=== PATIENT | male | born 1985 | race Two or more races ===

== ENCOUNTER 2020-01-31 16:03 | Emergency (ER) | payer SELFPAY ==
--- NOTE | 2020-01-31 16:38 | XR_ITS ---
EXAMINATION: XR FOOT, LEFT CLINICAL INFORMATION: Great toe pain. Question gout vs. fracture COMPARISON: None TECHNIQUE: AP, lateral, and oblique views of the left foot. FINDINGS: The lateral view is suboptimal, somewhat oblique. No fracture or dislocation seen. There is first metatarsophalangeal joint space narrowing and sclerosis with marginal osteophytosis. No specific findings to suggest gout. Small small plantar calcaneal osteophyte is present. There is mild dorsal spurring of the midfoot. There is an exostosis from the medial base of the first distal phalanx, 6 mm in length. IMPRESSION: Moderate degenerative arthrosis of the first tarsal metatarsal joint. The appearance suggests degenerative osteoarthritis with no specific findings to suggest this is due to gout. No fracture seen.
--- NOTE | 2020-01-31 16:39 | ED_ITS ---
HPI - Extremity Injury (Lower) General Chief Complaint: Extremity Problem Stated Complaint: TOE PAIN Time Seen by Provider: 01/31/20 16:27 Source: patient Mode of arrival: ambulatory History of Present Illness HPI Narrative: 35-year-old male with a past medical history of gout complaining of left great toe pain x2.5 weeks. Reports associated swelling and erythema. Admits symptoms similar to prior gout, however usually his gout over takes his entire foot. Denies known trauma / injury, numbness /tingling, weakness, fever MD complaint: foot injury Related Data Previous Rx's Medication Instructions Recorded ibuprofen 600 mg PO Q6H PRN 7 Days #20 tab 01/31/20 prednisone 10 mg PO DAILY #20 tab 01/31/20 Allergies Allergy/AdvReac Type Severity Reaction Status Date / Time Penicillins [PENICILLINS] Allergy Severe ANAPHYLAXIS Unverified 01/06/20 16:26 SEAFOOD Allergy Severe SWELLING Uncoded 01/06/20 16:26 Review of Systems Review of Systems: Constitutional: No Weight loss, No Fever Musculoskeletal: + joint pain, No Myalgias, + Joint Swelling Skin: No Skin Lesions, No rash Neuro: No Weakness, No Numbness, No Paresthesias Yes all other systems are reviewed and are negative PMFSH Past Medical History Attestation statement: The following information was validated with the patient. Medical History (Updated 01/31/20 @ 17:18 by ALVARO Cardenas) Gout No known health problems Social History Social History Smoking Status: Never smoker Use of substances other than those prescribed or required for medical reasons: No Advance Directives: No Advance Directives Information Provided: Yes Physical Exam Vital Signs: Vital Signs: Vital Signs Temp Pulse Resp BP Pulse Ox 01/31/20 16:46 98.6 F 77 18 137/62 96 Body Mass Index 44.3 Const: General: cooperative and healthy appearing Orientation/consciousness : patient oriented x3 Limitations: no limitations HENMT: Head: Yes normal to inspection Ears: hearing grossly normal bilaterally General nose exam: Normal external nose present Face and sinus: Yes normal facial exam Eyes: General: appearance normal, both eyes and all related structures EOM: EOMs intact bilaterally Neck: Neck: Yes normal visual inspection Resp: Effort & Inspection: normal respiratory effort Cardio: Rate: regular rate Peripheral pulses: Peripheral pulses 2+ through out Skin: Rashes: no rashes Wounds: no wounds Neuro: General: patient oriented x3 Gait exam (Neuro): Normal gait present Extrem: Other: left great toe swollen, erythematous, tender to palpation. No evidence of cellulitis / streaking. No fluctuance or induration Course Course Course Narrative: - x-ray showing moderate degenerative osteoarthrosis of the 1st tarsal metatarsal joint. Appearance suggestive degenerative osteoarthritis no specific findings to suggest gout. No fracture seen >> clinically will treat patient for gout MDM - Extremity Injury (Lower) MDM Narrative Medical decision making narrative: likely gout. Patient concern for possible fracture thus will obtain x-ray low concern for septic joint/arthritis Differential Diagnosis Differential diagnosis: Likely fracture of toe Discharge Plan Discharge Clinical Impression: Gout Qualifiers: Gout site: toe Gout etiology: unspecified cause Chronicity: acute Laterality: right Qualified Code(s): M10.9 - Gout, unspecified Osteoarthritis Qualifiers: Osteoarthritis location: foot Osteoarthritis type: unspecified Patient Disposition: Home, Self-Care Instructions: Osteoarthritis (ED), Gout (ED) Additional Instructions: your x-ray showed osteoarthritic changes of your 1st toe, however you likely have gout Take prednisone taper which will help with swelling /pain, in addition take Tylenol If area is worsening, redness spreads, swelling worsens, you develop fever or chills return to the ED You need to follow-up with your doctor Prescriptions: New prednisone 10 mg tablet 10 mg PO DAILY Qty: 20 RF: 0 ibuprofen 600 mg tablet 600 mg PO Q6H PRN (Reason: fever or pain) 7 Days Qty: 20 RF: 0 Referrals: Physician,None [Primary Care Provider] - 5 days
[2020-01-31 16:46] VITALS: BP 137/62; PULSE 77; RESP 18; TEMP 37; O2SAT 96; BMI 44.3
== END 2020-01-31 17:41 | disposition home or self-care (01) ==
PROVIDERS: Emergency Provider Internal Medicine
DX: M10.9 Gout, unspecified (principal); M19.071 Primary osteoarthritis, right ankle and foot
CPT/HCPCS: 73630; 99283

== ENCOUNTER 2020-02-14 13:32 | Outpatient (REF) | payer OTHER, SELFPAY | END 2020-02-14 13:33 | disposition home or self-care (01) | LOC: HO.LAB 13:32 | PROVIDERS: Visit Provider Internal Medicine | DX: Z20.828 Contact with and (suspected) exposure to other viral communicable diseases (principal) | CPT/HCPCS: 87635 ==

== ENCOUNTER 2020-03-02 11:33 | Outpatient (REF) | payer OTHER, SELFPAY | END 2020-03-02 11:34 | disposition home or self-care (01) | LOC: HO.LAB 11:33 | PROVIDERS: Visit Provider Internal Medicine | DX: Z20.828 Contact with and (suspected) exposure to other viral communicable diseases (principal) | CPT/HCPCS: C9803; U0003 ==

== ENCOUNTER 2020-03-13 11:37 | Emergency (ER) | payer OTHER, SELFPAY ==
--- NOTE | 2020-03-13 11:47 | XR_ITS ---
EXAMINATION: XR CHEST CLINICAL INFORMATION: Cough. COMPARISON: None TECHNIQUE: Frontal view of the chest was obtained. FINDINGS: No significant abnormality is noted involving the heart, lungs, mediastinum, bony thorax or soft tissues. XR/XR chest 1V IMPRESSION: Unremarkable chest examination.
[2020-03-13 12:02] VITALS: BP 118/66; PULSE 109; RESP 18; TEMP 39.4; O2SAT 93; BMI 44.3
[2020-03-13] MEDS: Acetaminophen 325 MG TABLET 975 MG PO (12:18)
[2020-03-13 13:20] VITALS: TEMP 38.9
[2020-03-13 13:49] VITALS: BP 130/57; PULSE 102; RESP 20; TEMP 38.4; O2SAT 95
[2020-03-13] MEDS: Ibuprofen 800 MG TABLET PO (13:49)
--- NOTE | 2020-03-13 14:04 | ED_ITS ---
HPI - URI/Sore Throat General Chief Complaint: Fever <Yg Gill NP - Last Filed: 03/13/20 14:26> Stated Complaint: fever,sob <Yg Gill NP - Last Filed: 03/13/20 14:26> Time Seen by Provider: 03/13/20 11:47 <Yg Gill NP - Last Filed: 03/13/20 14:26> Source: patient <Yg Gill NP - Last Filed: 03/13/20 14:26> Mode of arrival: ambulatory <Yg Gill NP - Last Filed: 03/13/20 14:26> Limitations: no limitations <Yg Gill NP - Last Filed: 03/13/20 14:26> History of Present Illness HPI Narrative: 35-year-old male who reports he has a history of asthma presenting today with complaint of rhinorrhea/congestion with some cough He was tested for COVID last week although he was negative his sister who also test the same time with similar symptoms tested positive. <Yg Gill NP - Last Filed: 03/13/20 14:26> MD elicited complaint: cough <Yg Gill NP - Last Filed: 03/13/20 14:26> Severity: moderate <Yg Gill NP - Last Filed: 03/13/20 14:26> Relieving factors: nothing <Yg Gill NP - Last Filed: 03/13/20 14:26> Associated symptoms: cough <Yg Gill NP - Last Filed: 03/13/20 14:26> Treatments prior to arrival: none <Yg Gill NP - Last Filed: 03/13/20 14:26> Related Data Home Medications: Previous Rx's Medication Instructions Recorded ibuprofen 600 mg PO Q6H PRN 7 Days #20 tab 01/31/20 prednisone 10 mg PO DAILY #20 tab 01/31/20 albuterol sulfate 2 puff INHALATION Q4-6H PRN #18 g 03/13/20 azithromycin [Zithromax Z-Saúl] 250 mg PO DAILY 5 Days #6 tab 03/13/20 prednisone 60 mg PO DAILY 5 Days #15 tab 03/13/20 <Yg Gill NP - Last Filed: 03/13/20 14:26> Allergies/Adverse Reactions: Allergies Allergy/AdvReac Type Severity Reaction Status Date / Time Penicillins [PENICILLINS] Allergy Severe ANAPHYLAXIS Verified 03/13/20 12:02 SEAFOOD Allergy Severe SWELLING Uncoded 03/13/20 12:02 <Yg Gill NP - Last Filed: 03/13/20 14:26> Review of Systems Review of Systems: Constitutional: No Weight loss, No Fever, No Chills, No Night Sweats, No Fatigue, No Malaise ENT/Mouth: No Hearing loss, No Ear Pain, No Nasal Congestion, No Sinus Pain, No Hoarseness, No sore throat, No Rhinorrhea, No Swallowing Difficulty Eyes: No Eye Pain, No Swelling, No Redness, No Foreign Body, No Discharge, No Vision Changes Cardiovascular: No Chest Pain, No SOB, No Dyspnea on Exertion, No Orthopnea, No Edema, No Palpitations Respiratory: + Cough, No Sputum, No Wheezing, No Smoke Exposure, No Dyspnea Gastrointestinal: No Nausea, No Vomiting, No Diarrhea, No Constipation, No abdominal Pain, No Hematochezia, No Melena Genitourinary: no irregular bleeding, No Dysuria, No Urinary Frequency, No Hematuria, No Urinary Incontinence, No Urgency, No Flank Pain, No Urinary Flow Changes, No Hesitancy Musculoskeletal: No joint pain, No Myalgias, No Joint Swelling Skin: No Skin Lesions, No rash Neuro: No Weakness, No Numbness, No Paresthesias, No Loss of Consciousness, No Dizziness, No Headache Psych: No Anxiety/Panic, No Depression, No SI/HI/AH/VH, No Social Issues Heme/Lymph: No Bruising, No Bleeding,No Lymphadenopathy Endocrine: No Polyuria, No Polydipsia, No Temperature Intolerance <Yg Gill NP - Last Filed: 03/13/20 14:26> Yes all other systems are reviewed and are negative <Yg Gill NP - Last Filed: 03/13/20 14:26> [facility] Past Medical History Medical History: Medical History (Updated 03/13/20 @ 14:04 by Yg Gill NP) Asthma Gout No known health problems <Yg Gill NP - Last Filed: 03/13/20 14:26> Social History Social History: Social History Smoking Status: Never smoker Advance Directives: No Advance Directives Information Provided: No <Yg Gill NP - Last Filed: 03/13/20 14:26> Physical Exam Vital Signs: Vital Signs: Last Vital Signs Temp 101.1 F H 03/13/20 13:49 Pulse 102 H 03/13/20 13:49 Resp 03/13/20 13:49 BP 130/57 L 03/13/20 13:49 Pulse Ox 95 03/13/20 13:49 Body Mass Index 44.3 Reviewed <Yg Gill NP - Last Filed: 03/13/20 14:26> Vital Signs: Last Vital Signs Temp 101.1 F H 03/13/20 13:49 Pulse 102 H 03/13/20 13:49 Resp 03/13/20 13:49 BP 130/57 L 03/13/20 13:49 Pulse Ox 95 03/13/20 13:49 Body Mass Index 44.3 <Delfino Reyna MD - Last Filed: 03/13/20 15:25> Const: General: cooperative and healthy appearing; No acute distress or intoxicated appearing <Yg Gill NP - Last Filed: 03/13/20 14:26> Nutritional Appearance: average body habitus <Yg Gill NP - Last Filed: 03/13/20 14:26> Orientation/consciousness: patient oriented x3 <Ygkirsty Gill NP - Last Filed: 03/13/20 14:26> HENMT: Head: Yes normal to inspection <Ygkirsty Gill NP - Last Filed: 03/13/20 14:26> Ears: hearing grossly normal bilaterally <Ygkirsty Gill NP - Last Filed: 03/13/20 14:26> Eyes: General: appearance normal, both eyes and all related structures <Yg Gill NP - Last Filed: 03/13/20 14:26> Visual Gómez: normal visual gómez by confrontation <Yg Gill NP - Last Filed: 03/13/20 14:26> Neck: Neck: Yes normal visual inspection, No positive Brudzinski's sign, No positive Kernig's sign and No tender <Ygkirsty Gill NP - Last Filed: 03/13/20 14:26> Thyroid: Thyroid normal <[facility] MARSHA Gill - Last Filed: 03/13/20 14:26> Chest: Chest palpation & inspection: normal inspection of the chest <Ygkirsty Gill NP - Last Filed: 03/13/20 14:26> Resp: Effort & Inspection: normal respiratory effort <Ygkirsty Gill NP - Last Filed: 03/13/20 14:26> Cardio: Jugular venous distension: no JVD <[facility] MARSHA Gill - Last Filed: 03/13/20 14:26> GI: Inspection: Yes normal to inspection <[facility] MARSHA Gill - Last Filed: 03/13/20 14:26> Percussion: Yes normal to percussion <[facility] MARSHA Gill - Last Filed: 03/13/20 14:26> Auscultation: normal bowel sounds <Ygkirsty Gill NP - Last Filed: 03/13/20 14:26> : General: Yes no CVA tenderness <[facility] MARSHA Gill - Last Filed: 03/13/20 14:26> Back/Spine/Pelvis: Back: no CVA tenderness <Ygkirsty Gill NP - Last Filed: 03/13/20 14:26> Skin: General skin exam: no rashes or lesions noted <Ygkirsty Gill NP - Last Filed: 03/13/20 14:26> Neuro: General: patient oriented x3 <Yg Gill NP - Last Filed: 03/13/20 14:26> Extrem: General: Yes normal to inspection <Ygkirsty Gill NP - Last Filed: 03/13/20 14:26> Course Course Course Narrative: Chest x-ray negative. COVID PCR pending. Given prednisone, Z-Saúl and inhaler for home. He is hemodynamically stable. Pulse ox 100% on room air. Plans/findings/return follow-up instructions provided and agreeable. Stable for discharge. <Yg Gill NP - Last Filed: 03/13/20 14:26> I have reviewed the chart <Delfino Reyna MD - Last Filed: 03/13/20 15:25> Discharge Plan Discharge Clinical Impression: Upper respiratory infection <Yg Gill NP - Last Filed: 03/13/20 14:26> Patient Disposition: Home, Self-Care <Yg Gill NP - Last Filed: 03/13/20 14:26> Instructions: Asthma (ED), Upper Respiratory Infection (ED) <Yg Gill NP - Last Filed: 03/13/20 14:26> Additional Instructions: Self-isolation Social distancing Take medication prescribed Return if any concerns or worsening symptoms Otherwise will call you with her COVID results in the next 3-5 days Thank you <Yg Gill NP - Last Filed: 03/13/20 14:26> Prescriptions: New azithromycin [Zithromax Z-Saúl] 250 mg tablet 250 mg PO DAILY 5 Days Qty: 6 RF: 0 albuterol sulfate 90 mcg/actuation HFA aerosol inhaler 2 puff inhalation Q4-6H PRN (Reason: shortness of breath or wheezing) Qty: 18 RF: 0 prednisone 20 mg tablet 60 mg PO DAILY 5 Days Qty: 15 RF: 0 No Action prednisone 10 mg tablet 10 mg PO DAILY Qty: 20 RF: 0 ibuprofen 600 mg tablet 600 mg PO Q6H PRN (Reason: fever or pain) 7 Days Qty: 20 RF: 0 <Yg Gill NP - Last Filed: 03/13/20 14:26> Referrals: Physician,Unknown [Primary Care Provider] - 1 week (Primary care ) <Yg Gill NP - Last Filed: 03/13/20 14:26> Stand Alone Forms: Work/School Release <Yg Gill NP - Last Filed: 03/13/20 14:26> Interventions: ED Discharge Assessment Last Done: 03/13/20 14:24 <Yg Gill NP - Last Filed: 03/13/20 14:26> Discharge Date/Time: 03/13/20 14:25 <Yg Gill NP - Last Filed: 03/13/20 14:26>
== END 2020-03-13 14:25 | disposition home or self-care (01) ==
PROVIDERS: Nurse Practitioner Primary Care; Emergency Provider Emergency Medicine
DX: J06.9 Acute upper respiratory infection, unspecified (principal); R50.9 Fever, unspecified; Z20.828 Contact with and (suspected) exposure to other viral communicable diseases; Z79.899 Other long term (current) drug therapy
CPT/HCPCS: 71045; 99283; U0003

== ENCOUNTER 2020-03-17 13:37 | Emergency (ER) | payer OTHER, SELFPAY ==
--- NOTE | 2020-03-17 14:14 | ED.FEVER ---
HPI - Fever General Chief Complaint: General Medical Stated Complaint: fever Time Seen by Provider: 03/17/20 14:11 Source: patient Mode of arrival: ambulatory Limitations: no limitations History of Present Illness HPI Narrative: 35 y/o male presenting with continued COVID symptoms: dry cough, fevers, muscle aches, nausea and fatigue. His sister was recently diagnosed with COVID-19 and he had exposure to her. He was seen here on 03/13 and a COVID-PCR was sent (still pending), and CXR performed (negative). He was prescribed Z-saúl, prednisone, ibuprofen and PRN albuterol inhaler which he has been taking. He states the cough has been keeping him up at night and causing his chest to be sore to touch. He states fevers are as high as 103 but improve to 99 after tylenol. Admits to nausea but denies abd pain, diarrhea. Eating well and staying hydrated. Related Data Previous Rx's Medication Instructions Recorded ibuprofen 600 mg PO Q6H PRN 7 Days #20 tab 01/31/20 prednisone 10 mg PO DAILY #20 tab 01/31/20 albuterol sulfate 2 puff INHALATION Q4-6H PRN #18 g 03/13/20 azithromycin [Zithromax Z-Saúl] 250 mg PO DAILY 5 Days #6 tab 03/13/20 prednisone 60 mg PO DAILY 5 Days #15 tab 03/13/20 hydrocodone-homatropine 5 ml PO Q4-6H PRN #60 ml 03/17/20 Allergies Allergy/AdvReac Type Severity Reaction Status Date / Time Penicillins [PENICILLINS] Allergy Severe ANAPHYLAXIS Verified 03/13/20 12:02 SEAFOOD Allergy Severe SWELLING Uncoded 03/13/20 12:02 Review of Systems Review of Systems: Constitutional: + Fever, + Chills ENT/Mouth: No sore throat, + Rhinorrhea, No Swallowing Difficulty Eyes: No Eye Pain, No Swelling, No Redness Cardiovascular: + Chest Pain, + SOB, No Orthopnea, No Edema Respiratory: + Cough, No Sputum, No Wheezing, + dyspnea Gastrointestinal: + Nausea, No Vomiting, No Diarrhea, No abdominal Pain Genitourinary: No Dysuria, No Urinary Frequency, No Hematuria Musculoskeletal: No joint pain, + Myalgias Skin: No Skin Lesions, No rash Neuro: + Generalized Weakness, No Numbness, No Dizziness, + Headache PMFSH Past Medical History Attestation statement: The following information was validated with the patient. Medical History Asthma Gout Social History Social History Alcohol intake: former Smoking Status: Never smoker Use of substances other than those prescribed or required for medical reasons: No Advance Directives: No Advance Directives Information Provided: No Physical Exam Vital Signs: Vital Signs: Last Vital Signs Temp 98.9 F 03/17/20 14:23 Pulse 81 03/17/20 14:23 Resp 18 03/17/20 14:23 BP 116/58 L 03/17/20 14:23 Pulse Ox 94 03/17/20 14:23 Body Mass Index 44.3 Appearance: Alert. Oriented X3. No acute distress. ENT: Pharynx normal. Neck: Normal inspection. Neck supple. CVS: Normal heart rate and rhythm. Pulses normal. Respiratory: No respiratory distress. Breath sounds normal. No wheezes Abdomen: Obese, Soft and nontender. +BS x4 Skin: Skin warm and dry. Normal skin color. Normal skin turgor. No rashes. Extremities: No lower extremity edema. Neuro: Oriented X 3. Non-focal. Course Course Course Narrative: 35 y/o male presenting with continued COVID symptoms. He appears well, non-toxic. Vitals are normal. Breath sounds are clear. No need to repeat CXR given he just had one, no hypoxia, no abnormal breath sounds. Resp viral panel sent. Suspect COVID given his exposure. Reevaluation(s) Reevaluation #1: COVID positive. Patient counseled. Stable for discharge. Instructed to come to the ED if he develops difficulty breathing or shortness of breath. MDM - Fever Lab Data Labs: Lab Results 03/17/20 Range/Units 14:34 Coronavirus (PCR) POSITIVE A (Negative) Influenza Type A (PCR) NEGATIVE (Negative) Influenza Type B (PCR) NEGATIVE (Negative) RSV RNA Qual (PCR) NEGATIVE (Negative) Discharge Plan Discharge Clinical Impression: COVID-19 Patient Disposition: Home, Self-Care Instructions: COVID-19 (Coronavirus Disease 2019) (ED) Additional Instructions: You are COVID-19 positive. Your vital signs were normal today. Continue to take over the counter cold/flu medications for your symptoms. Take Tylenol and/or Motrin as needed for fevers and muscle aches. Rest and stay hydrated. Quarantine at home and do not go out in public for at least 10 days. Use the albuterol inhaler as needed for shortness of breath or wheezing. If you develop difficulty breathing come back to the ER for further evaluation. Prescriptions: New hydrocodone-homatropine 5-1.5 mg/5 mL syrup 5 ml PO Q4-6H PRN (Reason: cough) Qty: 60 RF: 0 No Action azithromycin [Zithromax Z-Saúl] 250 mg tablet 250 mg PO DAILY 5 Days Qty: 6 RF: 0 albuterol sulfate 90 mcg/actuation HFA aerosol inhaler 2 puff inhalation Q4-6H PRN (Reason: shortness of breath or wheezing) Qty: 18 RF: 0 prednisone 20 mg tablet 60 mg PO DAILY 5 Days Qty: 15 RF: 0 prednisone 10 mg tablet 10 mg PO DAILY Qty: 20 RF: 0 ibuprofen 600 mg tablet 600 mg PO Q6H PRN (Reason: fever or pain) 7 Days Qty: 20 RF: 0
[2020-03-17 14:23] VITALS: BP 116/58; PULSE 81; RESP 18; TEMP 37.2; O2SAT 94; BMI 44.3
--- NOTE | 2020-03-17 14:34 | PC.NURSE ---
covid swab performed
[2020-03-17 15:28] LABS: Influenza A PCR NEGATIVE (Negative); Influenza B PCR NEGATIVE (Negative); Resp Syncy Virus RNA Qual PCR NEGATIVE (Negative)
[2020-03-17 15:31] LABS: SARS COV2 PCR INHOUSE POSITIVE (Negative)
== END 2020-03-17 16:11 | disposition home or self-care (01) ==
PROVIDERS: Physician Assistant; Emergency Provider Emergency Medicine Emergency Medical Services
DX: U07.1 COVID-19 (principal); R50.9 Fever, unspecified; M79.10 Myalgia, unspecified site; Z79.899 Other long term (current) drug therapy
CPT/HCPCS: 0241U; 99283

== ENCOUNTER 2021-04-08 17:31 | Emergency (ER) | payer OTHER, SELFPAY ==
--- NOTE | ~2021-04-08 | XR_ITS ---
EXAMINATION: X-RAY LEFT KNEE X-RAY RIGHT KNEE CLINICAL INFORMATION: Difficulty ambulating COMPARISON: None TECHNIQUE: Left knee 2 views. Right knee 2 views. FINDINGS: Left knee: Normal alignment. Joint spaces are maintained. No visible acute fracture or dislocation. Moderate to large joint effusion. Right knee: Normal alignment. Joint spaces are maintained. No visible acute fracture or dislocation. Moderate to large joint effusion. XR/XR knee RT 2V IMPRESSION: Left knee: No acute osseous abnormality seen. Moderate to large joint effusion. Right knee: No acute osseous abnormality seen. Moderate to large knee joint effusion.
--- NOTE | ~2021-04-08 | XR_ITS ---
EXAMINATION: X-RAY LEFT KNEE X-RAY RIGHT KNEE CLINICAL INFORMATION: Difficulty ambulating COMPARISON: None TECHNIQUE: Left knee 2 views. Right knee 2 views. FINDINGS: Left knee: Normal alignment. Joint spaces are maintained. No visible acute fracture or dislocation. Moderate to large joint effusion. Right knee: Normal alignment. Joint spaces are maintained. No visible acute fracture or dislocation. Moderate to large joint effusion. XR/XR knee LT 2V IMPRESSION: Left knee: No acute osseous abnormality seen. Moderate to large joint effusion. Right knee: No acute osseous abnormality seen. Moderate to large knee joint effusion.
[2021-04-08 19:07] VITALS: BP 125/50; PULSE 120; RESP 18; TEMP 37.3; O2SAT 99
[2021-04-08 21:28] VITALS: BP 134/83; PULSE 119; RESP 20; TEMP 37.2; O2SAT 96; BMI 44.3
--- NOTE | 2021-04-08 23:20 | ED.EXTPRO ---
HPI - Extremity Problem General Chief complaint: Extremity Injury, Lower Stated complaint: Gout Time Seen by Provider: 04/08/21 23:20 Source: patient Mode of arrival: ambulatory Limitations: no limitations History of Present Illness HPI Narrative: Patient with history of gout not on any medications comes here for 1 week of pain in the left greater toe spreading to the ankle and knee, no history of trauma no fever or chills Related Data Previous Rx's Medication Instructions Recorded ibuprofen 600 mg tablet 600 mg PO Q6H PRN 7 Days #20 tab 01/31/20 prednisone 10 mg tablet 10 mg PO DAILY #20 tab 01/31/20 albuterol sulfate 90 mcg/actuation 2 puff INHALATION Q4-6H PRN #18 g 03/13/20 aerosol inhaler azithromycin 250 mg tablet 250 mg PO DAILY 5 Days #6 tab 03/13/20 (Zithromax Z-Saúl) prednisone 20 mg tablet 60 mg PO DAILY 5 Days #15 tab 03/13/20 hydrocodone-homatropine 5 mg-1.5 5 ml PO Q4-6H PRN #60 ml 03/17/20 mg/5 mL oral syrup allopurinol 100 mg tablet 100 mg PO DAILY #30 tab 04/09/21 colchicine 0.6 mg tablet 0.6 mg PO DAILY #30 tab 04/09/21 indomethacin 50 mg capsule 50 mg PO TID #60 cap 04/09/21 prednisone 20 mg tablet 40 mg PO DAILY #10 tab 04/09/21 Allergies Allergy/AdvReac Type Severity Reaction Status Date / Time Penicillins [PENICILLINS] Allergy Severe ANAPHYLAXIS Verified 03/13/20 12:02 SEAFOOD Allergy Severe SWELLING Uncoded 03/13/20 12:02 Review of Systems Review of Systems: Yes all other systems are reviewed and are negative [facility] Past Medical History Medical History Asthma Gout Social History Social History Alcohol intake: former Advance Directives: No Advance Directives Information Provided: No Physical Exam Vital Signs: Vital Signs: Last Vital Signs Temp 98.9 F 04/08/21 21:28 Pulse 119 H 04/08/21 21:28 Resp 20 04/08/21 21:28 BP 134/83 04/08/21 21:28 Pulse Ox 96 04/08/21 21:28 BMI result Body Mass Index 44.3 Appearance: Alert. Oriented X3. No acute distress. Neck: Normal inspection. Neck supple. CVS: Normal heart rate and rhythm. Pulses normal. Respiratory: No respiratory distress. Skin: Skin warm and dry. Normal skin color. Normal skin turgor. Extremities: Swollen left 1st MTP joint, swollen left ankle and left knee with effusion and tenderness Neuro: Oriented X 3. MDM - Extremity (Nontraumatic) MDM Narrative Medical decision making narrative: Patient with gouty arthritis with history of same with elevated uric acid in the past will treat patient with steroids and anti-inflammatory Toradol Patient feeling better now will discharge patient home on prednisone allopurinol colchicine Discharge Plan Discharge Clinical Impression: Gout Qualifiers: Gout site: foot Gout etiology: unspecified cause Chronicity: acute Laterality: left Qualified Code(s): M10.9 - Gout, unspecified Patient Disposition: Home, Self-Care Instructions: Low Purine Diet (ED), Gout (ED) Additional Instructions: Take medication as prescribed Rest to the left foot Follow-up with PCP if not better Prescriptions: New prednisone 20 mg tablet 40 mg PO DAILY Qty: 10 RF: 0 colchicine 0.6 mg tablet 0.6 mg PO DAILY Qty: 30 RF: 0 allopurinol 100 mg tablet 100 mg PO DAILY Qty: 30 RF: 3 indomethacin 50 mg capsule 50 mg PO TID Qty: 60 RF: 0 No Action azithromycin [Zithromax Z-Súal] 250 mg tablet 250 mg PO DAILY 5 Days Qty: 6 RF: 0 albuterol sulfate 90 mcg/actuation HFA aerosol inhaler 2 puff inhalation Q4-6H PRN (Reason: shortness of breath or wheezing) Qty: 18 RF: 0 prednisone 20 mg tablet 60 mg PO DAILY 5 Days Qty: 15 RF: 0 prednisone 10 mg tablet 10 mg PO DAILY Qty: 20 RF: 0 ibuprofen 600 mg tablet 600 mg PO Q6H PRN (Reason: fever or pain) 7 Days Qty: 20 RF: 0 hydrocodone-homatropine 5-1.5 mg/5 mL syrup 5 ml PO Q4-6H PRN (Reason: cough) Qty: 60 RF: 0 Stand Alone Forms: Work/School Release
[2021-04-08] MEDS: dexAMETHasone 2 MG TABLET 10 MG PO (23:53)
[2021-04-08] MEDS: Ketorolac Tromethamine 60 MG/2 ML VIAL IM (23:53)
== END 2021-04-09 01:10 | disposition home or self-care (01) ==
PROVIDERS: Emergency Provider Internal Medicine
DX: M10.9 Gout, unspecified (principal); M79.675 Pain in left toe(s); M25.462 Effusion, left knee; M25.472 Effusion, left ankle
CPT/HCPCS: 73560; 96372; 99284; J1885; J8540

== ENCOUNTER 2022-11-15 10:48 | Emergency (ER) | payer OTHER, SELFPAY ==
[2022-11-15 11:04] VITALS: BP 157/92; PULSE 72; RESP 18; TEMP 36.8; O2SAT 97; BMI 49.2
--- NOTE | 2022-11-15 11:04 | ED_ITS ---
HPI - General Adult General Chief complaint: General Medical Stated complaint: Insect Bite Swelling Joint Pain Time Seen by Provider: 11/15/22 11:10 Source: patient Mode of arrival: ambulatory Limitations: no limitations History of Present Illness HPI narrative: Patient is a 37 year old assigned male at with a history of asthma and gout presenting to the emergency department today with bilateral knee pain, ri ght elbow pain, and a spider bite to his right pinky. Patient states that 3 weeks ago he was bit by a spider on his right pinky and ever since, he has had this joint pain. Patient states that he dug out something black from his hand after the bite. Patient states that it was not a tick. Patient denies any dizziness, lightheadedness, abdominal pain, nausea, vomiting, fever, chills, blurry vision, double vision, loss of vision, chest pain, difficulty breathing, shortness of breath, back pain, night sweats, pain with urination, increased urinary frequency, increased urinary urgency, blood in his urine or stool, syncope or a near syncopal episode, recent trauma or falls, bowel incontinence, bladder incontinence, bowel retention, bladder retention, or any other complaints at this time. Onset (ago): week(s) (3) Severity: mild Severity scale (1-10): 3 Quality: aching Pain Consistency: constant Relieving factors: none Exacerbating factors: none Associated symptoms: denies other symptoms Treatments prior to arrival: none Related Data Previous Rx's Medication Instructions Recorded ibuprofen 600 mg tablet 600 mg PO Q6H PRN fever or pain 7 01/31/20 days #20 tabs prednisone 10 mg tablet 10 mg PO DAILY #20 tabs 01/31/20 albuterol sulfate 90 mcg/actuation 2 puff inhalation Q4-6H PRN 03/13/20 aerosol inhaler shortness of breath or wheezing #18 grams azithromycin 250 mg tablet 250 mg PO DAILY 5 days #6 tabs 03/13/20 (Zithromax Z-Saúl) prednisone 20 mg tablet 60 mg PO DAILY 5 days #15 tabs 03/13/20 hydrocodone-homatropine 5 mg-1.5 5 ml PO Q4-6H PRN cough #60 mL 03/17/20 mg/5 mL oral syrup allopurinol 100 mg tablet 100 mg PO DAILY #30 tabs 12/20/21 colchicine 0.6 mg tablet 0.6 mg PO DAILY #30 tabs 04/09/21 indomethacin 50 mg capsule 50 mg PO TID #60 caps 04/09/21 prednisone 20 mg tablet 40 mg PO DAILY #10 tabs 04/09/21 cane #1 ea 11/15/22 prednisone 20 mg tablet 20 mg PO DAILY 7 days #7 tabs 11/15/22 Allergies Allergy/AdvReac Type Severity Reaction Status Date / Time Penicillins [PENICILLINS] Allergy Severe ANAPHYLAXIS Verified 03/13/20 12:02 SEAFOOD Allergy Severe SWELLING Uncoded 03/13/20 12:02 Review of Systems Constitutional: Constitutional: Reports no additional constitutional complaints, Denies chills, Denies fever(s) and Denies night sweats Eyes: Eyes: Reports no additional eye complaints, Denies blurry vision, Denies change in vision, Denies diplopia, Denies eye discharge, Denies loss of vision and Denies eye pain ENT: Denies dizziness Cardiovascular: Cardiovascular: Reports no additional cardiovascular complaints, Denies chest pain, Denies lightheadedness, Denies Loss of C onsciousness and Denies dyspnea Respiratory: Respiratory: Reports no additional respiratory complaints and Denies dyspnea Gastrointestinal: Gastrointestinal: Reports no additional gastrointestinal complaints, Denies abdominal pain, Denies melena, Denies hematochezia, Denies change in bowel habits and Denies change in stool character Genitourinary: Genitourinary: Reports no additional male genitourinary complaints, Denies hematuria, Denies oliguria, Denies difficulty urinating, Denies dysuria, Denies urinary frequency, Denies urinary hesitancy, Denies urinary incontinence and Denies urinary urgency Musculoskeletal: Musculoskeletal: Reports no additional musculoskeletal complaints, Denies numbness and Denies tingling Comments: bilateral knee pain, right elbow pain Neurologic: Denies dizziness, Denies loss of vision, Denies numbness and Denies tingling Psychiatric: Psychiatric: Reports no additional psychiatric complaints Endocrine: Endocrine: Reports no additional endocrine complaints Hematologic/Lymphatic: Hematologic/Lymphatic: Reports no additional hematologic/lymphatic complaints Allergic/Immunologic: Allergic/Immunologic: Reports no additional allergic/immunologic complaints PMFSH Past Medical History Attestation statement: The following information was validated with the patient. Source: old records reviewed and nursing notes reviewed Medical History Asthma COVID-19 Gout Social History Social History Alcohol intake: former Advance Directives: No Advance Directives Information Provided: No Physical Exam ED Vital Signs: Vital Signs - 24 hr 11/15/22 11:04 Temperature 98.2 F Pulse Rate 72 Respiratory Rate 18 Blood Pressure 157/92 H Pulse Oximetry 97 Oxygen Delivery Method Room Air BMI result Body Mass Index 49.2 Const General: cooperative, no acute distress, alert and awake Nutritional Appearance: well nourished Orientation/consciousness: patient oriented x3 Limitations: no limitations HENMT Head: Yes normal to inspection and Yes atraumatic Ears: hearing grossly normal bilaterally and external ears normal General nose exam: Normal external nose present, no nasal discharge noted and no epistaxis Face and sinus: Yes normal facial exam, No abrasion and No laceration Mouth: Normal oral and palatal mucosa present, no drooling and no muffled voice Eyes General: appearance normal, both eyes and all related structures Periorbital: periorbital findings normal Eyelids: Yes eyelids normal Conjunctivae: conjunctivae normal Pupils: Equal, round and reactive pupils present EOM: EOMs intact bilaterally Neck Neck: Yes normal visual inspection, Yes full ROM and Yes no lymphadenopathy Chest Chest palpation & inspection: normal inspection of the chest Resp Effort & Inspection: normal respiratory effort and able to speak in complete sentences GI Inspection: Yes normal to inspection Neuro General: patient oriented x3 and moves all extremities Cranial nerves: Yes Equal, round and reactive pupils present Cognition (Neuro): normal cognition Motor exam (neuro): 5/5 motor strength present throughout Sensory Exam: Normal double simultaneous stimulation for sensation Coordination: [id number] test normal Extrem General: Yes normal to inspection, Yes full ROM and Yes capillary refill normal Psych Appearance: grossly normal Mental Status: mental status grossly normal Affect: normal affect Attitude: cooperative Thought process: Normal thought process present Thought content: Normal thought content present Insight: Good insight present (Psych) Course Course Course Narrative: This is a rapid medical exam: Additional HPI, ROS, PE not included below will be deferred to primary provider. Patient is a 37-year-old male with history of gout presenting to the emergency department with complaint of right elbow and bilateral knee pain and swelling after insect bite to right pinky 3 weeks ago. States he feels it was a spider bite, did not visualize a spider but reports that he cut the bubble open and scraped out two black dots. Since has had the joint pain. Denies fevers. Plan: tick panel Medical Decision Making Medical Decision Making MDM Narrative: Patient is a 37 year old assigned male at with a history of asthma and gout presenting to the emergency department today with right elbow pain and bilateral knee pain. Patient's physical exam was unremarkable. Patient's tick panel is processing. I explained my physical exam findings to the patient. I answered all questions asked by the patient. Patient is non-toxic and not complaining of any other viral symptoms. Despite the patient being adamant that it was not a tick he pulled from his right pinky, will test for Lyme disease. Will treat as an arthritic or gout flare and if Lyme comes back positive, will treat. Patient requested I prescribe a cane for his bilateral knee pain. I stressed the importance of the patient taking his medication as prescribed. I stressed the importance of the patient following up with his primary care provider. I stressed the importance of the patient returning to the emergency department immediately if his symptoms were to worsen or if he were to develop any dizziness, shortness of breath, difficulty breathing, chest pain, blurry vision, loss of vision, nausea, vomiting, abdominal pain, fever, chills, back pain, or any other complaints. Patient verbalized agreement and understanding with this treatment plan and discharge. Differential Diagnosis Differential Diagnoses: The differential diagnosis associated with the presentation includes Osteoarthritis Lyme disease Gout flare Prescription Management I considered prescription management with: Other (patient prescribed an oral steroid.) Discharge Plan Discharge Clinical Impression: Joint pain Patient Disposition: Home, Self-Care Instructions: Arthralgia (ED) Additional Instructions: Follow up with your primary care provider. Return to the emergency department immediately if your symptoms worsen or if you develop any dizziness, shortness of breath, difficulty breathing, chest pain, blurry vision, loss of vision, nausea, vomiting, abdominal pain, fever, chills, back pain, or any other complaints. Prescriptions: New prednisone 20 mg tablet 20 mg PO DAILY 7 Days Qty: 7 0RF (DME) cane Device See Rx Instructions .Route Qty: 1 0RF Rx Instructions: As directed No Action azithromycin [Zithromax Z-Saúl] 250 mg tablet 250 mg PO DAILY 5 Days Qty: 6 0RF albuterol sulfate 90 mcg/actuation HFA aerosol inhaler 2 puff inhalation Q4-6H PRN (Reason: shortness of breath or wheezing) Qty: 18 0RF prednisone 20 mg tablet 60 mg PO DAILY 5 Days Qty: 15 0RF prednisone 10 mg tablet 10 mg PO DAILY Qty: 20 0RF Taper: Prednisone 40 mg daily for 3 Days and 0 Hour 30 mg daily for 3 Days and 0 Hour 20 mg daily for 3 Days and 0 Hour 10 mg daily for 3 Days and 0 Hour Rx Instructions: prednisone 10 mg: take 4 tablets (40 mg) for 2 days; 3 tablets (30 mg) for 2 days; 2 (20mg) tablets for 2 days and then 1 (10mg) tablet for 2 days ibuprofen 600 mg tablet 600 mg PO Q6H PRN (Reason: fever or pain) 7 Days Qty: 20 0RF hydrocodone-homatropine 5-1.5 mg/5 mL syrup 5 ml PO Q4-6H PRN (Reason: cough) Qty: 60 0RF prednisone 20 mg tablet 40 mg PO DAILY Qty: 10 0RF colchicine 0.6 mg tablet 0.6 mg PO DAILY Qty: 30 0RF allopurinol 100 mg tablet 100 mg PO DAILY Qty: 30 3RF indomethacin 50 mg capsule 50 mg PO TID Qty: 60 0RF Rx Instructions: administer with food or milk Referrals: [facility] [Primary Care Provider] - Interventions: ED Discharge Assessment Last Done: 11/15/22 11:42 Discharge Date/Time: 11/15/22 11:42 Print Language: Macedonian
[2022-11-18 23:12] LABS: A. Phagocytphilium DNA,RT-PCR NOT DETECTED (NOT DETECTED); Babesia Microti DNA, RT-PCR NOT DETECTED (NOT DETECTED); Borrelia Miyamotoi,DNA RT-PCR NOT DETECTED (NOT DETECTED); E.Chaffeensis DNA RT-PCR NOT DETECTED (NOT DETECTED); Lyme(Borrelia ssp)DNA RT-PCR NOT DETECTED (NOT DETECTED)
== END 2022-11-15 11:42 | disposition home or self-care (01) ==
PROVIDERS: Registered Nurse Emergency; Emergency Provider Emergency Medicine Emergency Medical Services
DX: M25.562 Pain in left knee (principal); M25.561 Pain in right knee; Z79.899 Other long term (current) drug therapy
CPT/HCPCS: 36415; 87798; 87801; 99282; 99283

== ENCOUNTER 2024-07-22 20:54 | Emergency (ER) | payer MEDICAID, SELFPAY ==
[2024-07-22 21:02] VITALS: BP 143/85; PULSE 100; RESP 16; TEMP 36.6; O2SAT 96; BMI 51.2
[2024-07-22 21:15] LABS: MANUAL DIFF FLAG NO
[2024-07-22 21:16] LABS: Basophils Absolute Auto 0.1 X10*3/uL (0.0-0.2); Basophils Percent Auto 0.4 % (0-2); Eosinophils Absolute Auto 0.1 X10*3/uL (0.0-0.4); Eosinophils Percent Auto 0.6 % (0-4); Hematocrit 41.6 % (42.0-52.0); Hemoglobin 14.1 g/dl (14.0-18.0); Imm Gran Abs Auto 0.04 X10*3/uL (0.00-0.03); Imm Gran Pct Auto 0.3 % (0.0-0.4); Lymphocytes Absolute Auto 1.9 X10*3/uL (1.2-4.9); Lymphocytes Percent Auto 16.5 % (20-40); Mean Corpuscular HGB Conc 33.9 g/dl (31.0-36.0); Mean Corpuscular Hemoglobin 29.5 pg (27.0-33.0); Mean Platelet Volume 10.3 fL (9.4-12.4); Monocytes Absolute Auto 1.2 X10*3/uL (0.1-1.2); Monocytes Percent Auto 10.2 % (2-11); Neutrophils Absolute Auto 8.4 x10*3/uL (2.0-8.3); Platelet Count 281 X10*3/uL (160-400); Red Blood Count 4.78 X10*6/uL (4.60-5.80); Red Cell Distribution Width 13.1 % (11.0-16.0); White Blood Count 11.6 X10*3/uL (4.8-10.8)
[2024-07-22 21:29] LABS: Alanine Aminotransferase 32 U/L (0-40); Albumin Level 4.1 g/dL (3.5-5.0); Alkaline Phosphatase 68 U/L (39-117); Anion Gap 13 (12-20); Aspartate Amino Transferase 25 U/L (5-37); Bilirubin Total 0.4 mg/dL (0.0-1.0); Blood Urea Nitrogen 13 mg/dL (9-16); Calcium 9.7 mg/dL (8.4-10.2); Carbon Dioxide 29 mmol/L (22-29); Chloride 103 mmol/L (96-108); Creatinine Clr Calc Pharmacy 143.4; Estimated Glomerular Filt Rate > 60; Glucose Random 116 mg/dL (60-115); Potassium 3.9 mmol/L (3.3-5.1); Sodium 141 mmol/L (135-145); Uric Acid 4.2 mg/dL (3.4-7.0)
--- NOTE | 2024-07-22 22:59 | ED.LOWEXIN ---
HPI - Extremity Injury (Lower) General Chief Complaint: Extremity Injury, Lower Stated Complaint: left foot,right knee pain ? gout Time Seen by Provider: 07/22/24 22:47 Source: patient Mode of arrival: ambulatory Limitations: no limitations History of Present Illness ED Provider: Dr. Shanell Juárez HPI Narrative: Patient comes to emergency room complaining of a gout flare. Patient states that he has been diagnosed with gout flares in the past and it feels the same. Patient states that 3 days ago it started with his left ankle. Patient states that he was hoping it would go away. Patient states that he had been avoiding putting much weight on his left foot and has been walking with a cane over compensating with his right leg and now his right knee hurts. Patient denies any falls. Patient denies fever or chills. Related Data Previous Rx's ?Medication ?Instructions ?Recorded ibuprofen 600 mg tablet 600 mg PO Q6H PRN fever or pain 7 01/31/20 days #20 tabs prednisone 10 mg tablet 10 mg PO DAILY #20 tabs 01/31/20 albuterol sulfate 90 mcg/actuation 2 puff inhalation Q4-6H PRN 03/13/20 aerosol inhaler shortness of breath or wheezing #18 grams azithromycin 250 mg tablet 250 mg PO DAILY 5 days #6 tabs 03/13/20 (Zithromax Z-Saúl) prednisone 20 mg tablet 60 mg (3 x 20 mg) PO DAILY 5 days 03/13/20 #15 tabs hydrocodone-homatropine 5 mg-1.5 5 ml PO Q4-6H PRN cough #60 mL 03/17/20 mg/5 mL oral solution allopurinol 100 mg tablet 100 mg PO DAILY #30 tabs 04/09/21 colchicine 0.6 mg tablet 0.6 mg PO DAILY #30 tabs 04/09/21 indomethacin 50 mg capsule 50 mg PO TID #60 caps 04/09/21 prednisone 20 mg tablet 40 mg (2 x 20 mg) PO DAILY #10 tabs 04/09/21 cane #1 ea 11/15/22 prednisone 20 mg tablet 20 mg PO DAILY 7 days #7 tabs 11/15/22 colchicine 0.6 mg capsule 0.6 mg PO BID PRN pain #10 caps 07/22/24 prednisone 20 mg tablet 20 mg PO DAILY #4 tabs 07/22/24 Allergies Allergy/AdvReac Type Severity Reaction Status Date / Time Penicillins [PENICILLINS] Allergy Severe ANAPHYLAXIS Verified 07/22/24 21:04 SEAFOOD Allergy Severe SWELLING Uncoded 03/13/20 12:02 Review of Systems Review of Systems: Constitutional : No Weight loss, No Fever, No Chills, No Night Sweats, No Fatigue, No Malaise ENT/Mouth : No Hearing loss, No Ear Pain, No Nasal Congestion, No Sinus Pain, No Hoarseness, No sore throat, No Rhinorrhea, No Swallowing Difficulty Eyes: No Eye Pain, No Swelling, No Redness, No Foreign Body, No Discharge, No Vision Changes Cardiovascular : No Chest Pain, No SOB, No Dyspnea on Exertion, No Orthopnea, No Edema, No Palpitations Respiratory : No Cough, No Sputum, No Wheezing, No Smoke Exposure, No Dyspnea Gastrointestinal : No Nausea, No Vomiting, No Diarrhea, No Constipation, No abdominal Pain, No Hematochezia, No Melena Genitourinary : no irregular bleeding, No Dysuria, No Urinary Frequency, No Hematuria, No Urinary Incontinence, No Urgency, No Flank Pain, No Urinary Flow Changes, No Hesitancy Musculoskeletal : Complaining of left ankle and right knee pain and swelling, No Myalgias, No Joint Swelling Skin : No Skin Lesions, No rash Neuro : No Weakness, No Numbness, No Paresthesias, No Loss of Consciousness, No Dizziness, No Headache Psych : No Anxiety/Panic, No Depression, No SI/HI/AH/VH, No Social Issues, Heme/Lymph: No Bruising, No Bleeding,No Lymphadenopathy Endocrine : No Polyuria, No Polydipsia, No Temperature Intolerance [facility] Past Medical History Medical History COVID-19 Asthma Gout Social History Social History Alcohol intake: former Do you have a plan to hurt others: No Plan Physical Exam Vital Signs: Vital Signs: Last Vital Signs Temp 97.9 F 07/22/24 21:02 Pulse 100 07/22/24 21:02 Resp 16 07/22/24 21:02 BP 143/85 H 07/22/24 21:02 Pulse Ox 96 07/22/24 21:02 O2 Del Method Room Air 07/22/24 21:02 BMI result Body Mass Index 51.2 Const: Other: Appearance: Alert. Oriented X3. No acute distress. Eyes: Pupils equal, round and reactive to light. ENT: Pharynx normal. Neck: Normal inspection. Neck supple. No lymph nodes noted. No crepitus CVS: Normal heart rate and rhythm. Pulses normal. Normal S1 and S2 Respiratory: No respiratory distress. Breath sounds normal. No Wheezing. No rales Abdomen: Soft and nontender. No rigidity. No distention. Skin: Skin warm and dry. Normal skin color. Normal skin turgor. Extremities: left ankle slightly swollen, no pitting edema, no pain in the calf, no erythema, slightly warm but not obvious. On the right knee there is a small to moderate effusion. Not warm to touch, no significant pain to palpation. Neuro: Oriented X 3. No motor deficit. No sensory deficit. Moving all extremities. No slurred speech. CN 2 through 12 grossly intact Psych: calm, cooperative, normal affect Medical Decision Making Medical Decision Making [facility] Narrative: My interpretation of labs: Patient's white blood cell count 11.6 which is chronic for the patient, normal chemistry, normal LFTs I discussed the physical exam with the patient, patient likely has starting of gout on his left ankle . the pain is localized, DVT not suspected the pain on the right knee likely secondary to an effusion. Patient was given p.o. prednisone and colchicine patient instructed to have close follow-up with his primary care physician. Patient's is able to flex and extend the joints, including the affected joints. Septic joints are not suspected Differential Diagnosis Differential Diagnoses: The differential diagnosis associated with the presentation includes ( as above) Lab Data [facility] Lab Attestation statement: I reviewed the patient's lab results. 07/22/24 21:10 07/22/24 21:10 Labs: Lab Results 07/22/24 Range/Units 21:10 WBC 11.6 H (4.8-10.8) X10*3/uL RBC 4.78 (4.60-5.80) X10*6/uL Hgb 14.1 (14.0-18.0) g/dl Hct 41.6 L (42.0-52.0) % MCV 87.0 (80.0-98.0) fL MCH 29.5 (27.0-33.0) pg MCHC 33.9 (31.0-36.0) g/dl RDW 13.1 (11.0-16.0) % Plt Count 281 (160-400) X10*3/uL MPV 10.3 (9.4-12.4) fL Immature Gran % (Auto) 0.3 (0.0-0.4) % Neut % (Auto) 72.0 (45-73) % Lymph % (Auto) 16.5 L (20-40) % [place] % (Auto) 10.2 (2-11) % Eos % (Auto) 0.6 (0-4) % Baso % (Auto) 0.4 (0-2) % Lymph # (Auto) 1.9 (1.2-4.9) X10*3/uL [place] # (Auto) 1.2 (0.1-1.2) X10*3/uL Eos # (Auto) 0.1 (0.0-0.4) X10*3/uL Baso # (Auto) 0.1 (0.0-0.2) X10*3/uL Abs Immat Gran (auto) 0.04 H (0.00-0.03) X10*3/uL Absolute Neuts (auto) 8.4 H (2.0-8.3) x10*3/uL Absolute Nucleated RBC 0.000 (0.0-0.012) X10*3/uL Nucleated RBC % (auto) 0.0 (0.0-0.2) /100WBC Sodium 141 (135-145) mmol/L Potassium 3.9 (3.3-5.1) mmol/L Chloride 103 (96-108) mmol/L Carbon Dioxide 29 (22-29) mmol/L Anion Gap 13 (12-20) BUN 13 (9-16) mg/dL Creatinine 1.01 (0.5-1.4) mg/dL Estim Creat Clear Calc 143.4 Estimated GFR > 60 Random Glucose 116 H (60-115) mg/dL Uric Acid 4.2 (3.4-7.0) mg/dL Calcium 9.7 (8.4-10.2) mg/dL Total Bilirubin 0.4 (0.0-1.0) mg/dL AST 25 (5-37) U/L ALT 32 (0-40) U/L Alkaline Phosphatase 68 (39-117) U/L Total Protein 8.0 (6.5-8.0) g/dL Albumin 4.1 (3.5-5.0) g/dL Independent Interpretation I performed an independent interpretation of an: Plain X-Ray Radiology Impression Discussion of test interpretation with radiology: I have reviewed the radiologist's reading. Discharge Plan Discharge Clinical Impression: Gout, Effusion of knee joint Patient Disposition: Home, Self-Care Instructions: Low Purine Diet (ED), Gout (ED), Swollen Joint (ED) Additional Instructions: Please follow-up with your primary care physician tomorrow. If you have any worsening or new symptoms, please return to the emergency room or call 911 Prescriptions: New colchicine 0.6 mg capsule 0.6 mg PO BID PRN (Reason: pain) Qty: 10 0RF prednisone 20 mg tablet 20 mg PO DAILY Qty: 4 0RF No Action azithromycin [Zithromax Z-Saúl] 250 mg tablet 250 mg PO DAILY 5 Days Qty: 6 0RF albuterol sulfate 90 mcg/actuation HFA aerosol inhaler 2 puff inhalation Q4-6H PRN (Reason: shortness of breath or wheezing) Qty: 18 0RF prednisone 20 mg tablet 60 mg PO DAILY 5 Days Qty: 15 0RF prednisone 10 mg tablet 10 mg PO DAILY Qty: 20 0RF Taper: Prednisone 40 mg daily for 3 Days and 0 Hour 30 mg daily for 3 Days and 0 Hour 20 mg daily for 3 Days and 0 Hour 10 mg daily for 3 Days and 0 Hour Rx Instructions: prednisone 10 mg: take 4 tablets (40 mg) for 2 days; 3 tablets (30 mg) for 2 days; 2 (20mg) tablets for 2 days and then 1 (10mg) tablet for 2 days ibuprofen 600 mg tablet 600 mg PO Q6H PRN (Reason: fever or pain) 7 Days Qty: 20 0RF hydrocodone-homatropine 5-1.5 mg/5 mL syrup 5 ml PO Q4-6H PRN (Reason: cough) Qty: 60 0RF prednisone 20 mg tablet 40 mg PO DAILY Qty: 10 0RF colchicine 0.6 mg tablet 0.6 mg PO DAILY Qty: 30 0RF allopurinol 100 mg tablet 100 mg PO DAILY Qty: 30 3RF indomethacin 50 mg capsule 50 mg PO TID Qty: 60 0RF Rx Instructions: administer with food or milk prednisone 20 mg tablet 20 mg PO DAILY 7 Days Qty: 7 0RF (DME) cane Device See Rx Instructions .Route Qty: 1 0RF Rx Instructions: As directed Stand Alone Forms: Work/School Release Print Language: Telugu
--- OUTSIDE RECORDS SUMMARY | 2024-07-22 23:16 | XMS_ITS | Encounter Summary ---
Author Organization [employer] Address [address] [place] [address] Care Team Providers Care Film Cutter Name Role Phone Unavailable Primary Care Provider Unavailabl e Encounter Details Date Type Department Care Team (Late st Contact Info) Description 07/22/2024 Orders Only GENERIC EXTERNAL DATA DEPARTMENT Provider, Generic External Data Social History Tobacco Use Types Packs/Day Years Used Date Smoking Tobacco: Never Assessed Sex and Gender Information Value Date Recorded Sex Assigned at Male 02/18/2022 10:17 AM EDT Legal Sex Male 10:17 AM EDT Gender Identity Choose not to disclose 10:17 AM EDT Sexual Orientation Choose not to disclose 2021 10:17 AM EDT documented as of this encounter Plan of Treatment Not on file documented as of this encounter Procedures Procedure Name Priority Date/Time Associated Diagnosis Comments CBC WITH AUTO DIFFERENTIAL Routine 07/22/2024 9:10 PM EDT URIC ACID Routine 07/22/2024 9:10 PM EDT COMPREHENSIVE METABOLIC PANEL Routine 07/22/2024 9:10 PM EDT documented in this encounter Results * Uric acid (07/22/2024 9:10 PM EDT) Uric Acid 4.2 3.4 - 7.0 mg/dL [facility] 07/22/2024 9:10 PM EDT 07/22/2024 9:13 PM EDT us Generic External Data Provider LAB BLOOD ORDERAB LES Final Result [facility] [address] [place] [phone] * (ABNORMAL) Comprehensive Metabolic Panel (07/22/2024 9:10 PM EDT) Sodium 141 135 - 145 mmol/L [facility] Potassium 3.9 3.3 - 5.1 mmol/L [facility] Chloride 103 96 - 108 mmol/L [facility] Carbon Dioxide 29 22 - 29 mmol/L [facility] Anion Gap 13 12 - 20 [facility] Urea Nitrogen (BUN) 13 9 - 16 mg/dL [facility] Creatinine, Serum 1.01 0.5 - 1.4 mg/dL [facility] Creatinine Clr Calc Pharmacy 143.4 [facility] Comment:eGFR (calculated fro m the MDRD study equation) and eCrCl(calculated from the Cockcroft-Gault equation) are based ondifferent parameters and may not yield comparable results.If eCrCl result is absurd, please check patient'sheight/weight. Estimated Glomerular Filt Rate >60 [facility] Comment:Chronic Kidney Disea se: Estimated GFR < 60 mL/min/1.87a7Pdbrht Kidney Disease: Estimated GFR < 15 mL/min/1.73m2 Glucose 116(H) 60 - 115 mg/dL [facility] Calcium 9.7 8.4 - 10.2 mg/dL [facility] Bilirubin, Total 0.4 0.0 - 1.0 mg/dL [facility] Aspartate Amino Transferase 25 5 - 37 U/L [facility] Alanine Aminotransferase 32 0 - 40 U/L [facility] Total Protein 8.0 6.5 - 8.0 g/dL [facility] Albumin Level 4.1 3.5 - 5.0 g/dL [facility] Alkaline Phosphatase 68 39 - 117 U/L [facility] 07/22/2024 9:10 PM EDT 07/22/2024 9:13 PM EDT us Generic External Data Provider LAB BLOOD ORDERAB LES Final Result [facility] [address] [place] [phone] * (ABNORMAL) CBC auto differential (07/22/2024 9:10 PM EDT) White Blood Count 11.6(H) 4.8 - 10.8 X10*3/uL [facility] Red Blood Count 4.78 4.60 - 5.80 X10*6/uL [facility] Hemoglobin 14.1 14.0 - 18.0 g/dl [facility] Hematocrit 41.6(L) 42.0 - 52.0 % [facility] Mean Corpuscular Volume 87.0 80.0 - 98.0 fL [facility] Mean Corpuscular Hemoglobin 29.5 27.0 - 33.0 pg [facility] Mean Corpuscular HGB Conc 33.9 31.0 - 36.0 g/dl [facility] Red Cell Distribution Width 13.1 11.0 - 16.0 % [facility] Platelet Count 281 160 - 400 X10*3/uL [facility] Mean Platelet Volume 10.3 9.4 - 12.4 fL [facility] Neutrophils Percent Auto 72.0 45 - 73 % [facility] Imm Gran Pct Auto 0.3 0.0 - 0.4 % [facility] Lymphocytes Percent Auto 16.5(L) 20 - 40 % [facility] Monocytes Percent Auto 10.2 2 - 11 % [facility] Eosinophils Percent Auto 0.6 0 - 4 % [facility] Basophils Percent Auto 0.4 0 - 2 % [facility] NRBC Pct Auto 0.0 0.0 - 0.2 /100WBC [facility] Neutrophils Absolute Auto 8.4(H) 2.0 - 8.3 x10*3/uL [facility] Imm Gran Abs Auto 0.04(H) 0.00 - 0.03 X10*3/uL [facility] Lymphocytes Absolute Auto 1.9 1.2 - 4.9 X10*3/uL [facility] Monocytes Absolute Auto 1.2 0.1 - 1.2 X10*3/uL [facility] Eosinophils Absolute Auto 0.1 0.0 - 0.4 X10*3/uL [facility] Basophils Absolute Auto 0.1 0.0 - 0.2 X10*3/uL [facility] NRBC Abs Auto 0.000 0.0 - 0.012 X10*3/uL [facility] 07/22/2024 9:10 PM EDT 07/22/2024 9:13 PM EDT us Generic External Data Provider LAB BLOOD ORDERAB LES Final Result Performing Organization Address City/State/[facility] Co de Phone Number [facility] [address] [place] [phone] documented in this encounter Visit Diagnoses Not on filedocumented in this encounter
[2024-07-22] MEDS: predniSONE 20 MG TABLET PO (23:24)
[2024-07-22] MEDS: Colchicine 0.6 MG TABLET PO (23:25)
[2024-07-22 23:35] VITALS: BP 132/92; PULSE 96; RESP 18; TEMP 37.6; O2SAT 94
== END 2024-07-22 23:36 | disposition home or self-care (01) ==
LOC: HO.ED 23:15
PROVIDERS: Emergency Provider Emergency Medicine
DX: M10.9 Gout, unspecified (principal); M25.461 Effusion, right knee; M25.572 Pain in left ankle and joints of left foot
CPT/HCPCS: 36415; 80053; 84550; 85025; 99282; 99283